=== PATIENT | male | born 1950 ===

== ENCOUNTER 2022-06-11 19:08 | Emergency (ER) | payer MEDICARE ==
[~2022-06-11] VITALS: Ht 188 cm; Wt 86.4 kg
[2022-06-11 19:17] VITALS: BP 137/77
== END 2022-06-11 22:46 | disposition left against medical advice (07) ==
LOC: ER 19:09
DX: K59.00 Constipation, unspecified (principal); Z53.21 Procedure and treatment not carried out due to patient leaving prior to being seen by health care provider